=== PATIENT | female | born 1965 | race African-American/Black ===

== ENCOUNTER 2016-03-22 17:25 | Emergency (ER) | payer OTHER, MEDICARE ==
[~2016-03-22] VITALS: Ht 160 cm; Wt 117.9 kg
[~2016-03-22 17:25] MED LIST: ACET1TAB37 PO; AMIT25TA PO; AMLO10TA4 PO; ASPI-482 PO; ASPI81TA2 PO; ATEN100T PO; BENZ100C2 PO; CALC0.25 PO; CARV12.52 PO; CARV3.122 PO; CARV6.252 PO; CLON0.1T PO; CLON0.1T12 PO; DOCU-27 PO; DOCU100C5 PO; DOXY100C2 PO; HYDR-2868 PO; HYDR-2869 PO; HYDR12.58 PO; HYDR25TA9 PO; ISOS60TA2 PO; LEVO150T PO; LEVO150T5 PO; LEVO200T5 PO; LISI40TA PO; OMEP40CA5 PO; PRAV40TA2 PO; PRAV80TA2 PO; PROVENTIL HFA6.7 GM IH; SPIR1TAB3 PO; TOPI50TA4 PO; TRAM100T PO
[2016-03-22 18:15] VITALS: BP 155/83
[2016-03-22] MEDS ORDERED: ALLO300T PO (19:14)
[2016-03-22] MEDS ORDERED: HYDR-971 PO (19:14)
--- NOTE | 2016-03-22 19:14 | PHYS DOC ---
Past Medical History Past Medical History: Asthma, CHF, High Cholesterol, Hypertension, Hyperthyroid , Kidney Infection, Renal Disease Additional Past Medical Histor: CHRONIC KIDNEY DISEASE, Gout Past Surgical History: Cholecystectomy, Hysterectomy, Tubal ligation Additional Past Surgical Histo: PERICARDIAL Window Alcohol Use: None Drug Use: None Adult General Chief Complaint Chief Complaint: FOOT INJURY PAIN [facility] HPI Patient is a 50 year old female presents the emergency department with complaint of atraumatic left great toe pain and swelling that began approximately 2 weeks ago. Patient does have a history of gout. Patient had been taken IUP or not daily. She's been out of Alupent off approximately 2 months patient patient states that she has a follow-up appointment with her primary care doctor next week. Review of Systems Review of Systems Constitutional: Denies fever or chills [] Eyes: Denies change in visual acuity, redness, or eye pain [] HENT: Denies nasal congestion or sore throat [] Respiratory: Denies cough or shortness of breath [] Cardiovascular: No additional information not addressed in HPI [] GI: Denies abdominal pain, nausea, vomiting, bloody stools or diarrhea [] : Denies dysuria or hematuria [] Musculoskeletal: Denies back pain or joint pain [] Integument: Denies rash or skin lesions [] Neurologic: Denies headache, focal weakness or sensory changes [] Endocrine: Denies polyuria or polydipsia [] Allergies Allergies Allergies Coded Allergies Type Severity Reaction Last Updated Verified Penicillins Allergy Intermediate 11/29/15 Yes Physical Exam Physical Exam Constitutional: Well developed, well nourished, no acute distress, non-toxic appearance. [] HENT: Normocephalic, atraumatic, bilateral external ears normal, oropharynx moist, no oral exudates, nose normal. [] Eyes: PERRLA, EOMI, conjunctiva normal, no discharge. [] Neck: Normal range of motion, no tenderness, supple, no stridor. [] Cardiovascular:Heart rate regular rhythm, no murmur [] Lungs & Thorax: Bilateral breath sounds clear to auscultation [] Abdomen: Bowel sounds normal, soft, no tenderness, no masses, no pulsatile masses. [] Skin: Significant amount of hypertrophic nail overgrowth secondary to fungal infection. This affects all toenails. Back: No tenderness, no CVA tenderness. [] Extremities: Left first MTPJ with mild swelling and a mild amount of erythema. There is no fluctuance. There is no ascending lymphangitis. There is no pain with passive flexion. Neurologic: Alert and oriented X 3, normal motor function, normal sensory function, no focal deficits noted. [] Psychologic: Affect normal, judgement normal, mood normal. [] Current Patient Data Vital Signs Vital Signs Date Time Temp Pulse Resp B/P Pulse Ox O2 Delivery O2 Flow Rate FiO2 03/22/16 18:15 98.1 80 16 97 Room Air 98.1 EKG EKG [] Radiology/Procedures Radiology/Procedures [] Course & Med Decision Making Course & Med Decision Making Pertinent Labs and Imaging studies reviewed. (See chart for details) [] Dragon Disclaimer Dragon Disclaimer This electronic medical record was generated, in whole or in part, using a voice recognition dictation system. Departure Departure Impression: Primary Impression: Gout Disposition: HOME, SELF-CARE Condition: GOOD Referrals: JUSTINO CARPIO (PCP) Patient Instructions: Gout, [id number] Additional Instructions: 1. Take the medication as prescribed. 2. Review the discharge instructions for self-care and reasons to return the emergency department. 3. Follow-up with your primary care doctor as planned for next week. Scripts Hydrocodone/Apap 5-325 (Walton 5-325 Tablet)1 Each Tablet1 Tab PO PRN Q6HRS PRN PAIN #15 TAB Ref 0 Prov:NAYA GARCIA 03/22/16 Allopurinol 300 Mg Tablet1 Tab PO DAILY #14 TAB Ref 0 Prov:NAYA GARCIA 03/22/16 NAYA GARCIA Mar 22, 2016 19:14
== END 2016-03-22 19:20 | disposition home or self-care (01) ==
LOC: ER 17:25
DX: M10.9 Gout, unspecified (principal); E78.00 Pure hypercholesterolemia, unspecified; I13.0 Hypertensive heart and chronic kidney disease with heart failure and stage 1 through stage 4 chronic kidney disease, or unspecified chronic kidney disease; I50.9 Heart failure, unspecified; N18.9 Chronic kidney disease, unspecified; J45.909 Unspecified asthma, uncomplicated; E05.90 Thyrotoxicosis, unspecified without thyrotoxic crisis or storm; Z88.0 Allergy status to penicillin
CPT/HCPCS: 99283

== ENCOUNTER → 2016-06-03 | Outpatient (CLI) | payer MEDICARE, OTHER ==
[~2016-06-03] MED LIST changes: +ALLO300T PO; +HYDR-971 PO
[2016-06-03 13:28] LABS: HEMATOCRIT 37.8 % (36.0-47.0); HEMOGLOBIN 12.1 g/dL (12.0-15.5)
[2016-06-03 13:51] LABS: ALBUMIN 3.2 g/dL (3.4-5.0); CALCIUM 9.8 mg/dL (8.5-10.1); CREATININE 3.1 mg/dL (0.6-1.0); GFR 19.4; MAGNESIUM 1.8 mg/dL (1.8-2.4); PHOSPHORUS 3.7 mg/dL (2.6-4.7)
[2016-06-03 21:27] LABS: UR PROTEIN RD 22.3 mg/dL (Not Estab.)
[2016-06-03 22:09] LABS: PTH INTACT 212 pg/mL (15-65)
== END | disposition home or self-care (01) ==
LOC: LAB 12:58 → EDBD 12:58
PROVIDERS: ATTEND Nurse Practitioner Family
DX: I12.9 Hypertensive chronic kidney disease with stage 1 through stage 4 chronic kidney disease, or unspecified chronic kidney disease (principal); N18.3 Chronic kidney disease, stage 3 (moderate); Z68.42 Body mass index [BMI] 45.0-49.9, adult; E21.3 Hyperparathyroidism, unspecified; E87.6 Hypokalemia; R60.0 Localized edema; R80.9 Proteinuria, unspecified; N27.0 Small kidney, unilateral
CPT/HCPCS: 36415; 80069; 82043; 82570; 83735; 83970; 84156; 85014; 85018

== ENCOUNTER → 2016-10-27 | Outpatient (CLI) | payer MEDICARE, OTHER ==
[~2016-10-27] MED LIST changes: +ASPI-630 PO; -ASPI81TA2 PO; +BENZ100C15 PO; -BENZ100C2 PO; +DOCU-109 PO; -DOCU-27 PO; +DOCU100C28 PO; -DOCU100C5 PO; -TOPI50TA4 PO; +TOPI50TA8 PO
[2016-10-27 11:45] LABS: HEMATOCRIT 36.5 % (36.0-47.0); HEMOGLOBIN 11.9 g/dL (12.0-15.5)
[2016-10-27 11:55] LABS: % SAT IRON 21 % (15-34); IRON,SERUM 61 ug/dL (50-170)
[2016-10-27 12:08] LABS: ALBUMIN 3.2 g/dL (3.4-5.0); CALCIUM 9.9 mg/dL (8.5-10.1); CREATININE 3.1 mg/dL (0.6-1.0); GFR 19.3; PHOSPHORUS 3.6 mg/dL (2.6-4.7); POTASSIUM 3.5 mmol/L (3.5-5.1)
[2016-10-28 00:09] LABS: TOTAL SERUM CREATININE 2.83 mg/dL (0.57-1.00); TOTAL URINE CREATININE 85.8 mg/dL (Not Estab.)
[2016-10-29 07:19] LABS: UR PROTEIN RD 24.5 mg/dL (Not Estab.)
== END | disposition home or self-care (01) ==
LOC: EDBD 11:04 → LAB 11:04
PROVIDERS: ATTEND Internal Medicine Nephrology
DX: I12.9 Hypertensive chronic kidney disease with stage 1 through stage 4 chronic kidney disease, or unspecified chronic kidney disease (principal); N18.4 Chronic kidney disease, stage 4 (severe); E21.3 Hyperparathyroidism, unspecified; D47.2 Monoclonal gammopathy; N27.0 Small kidney, unilateral; D64.9 Anemia, unspecified; R80.1 Persistent proteinuria, unspecified; Z68.41 Body mass index [BMI] 40.0-44.9, adult
CPT/HCPCS: 36415; 80069; 82043; 82306; 82570; 82575; 82607; 82728; 83540; 83550; 84156; 85014; 85018

== ENCOUNTER → 2017-06-05 | Outpatient (CLI) | payer OTHER, MEDICARE ==
[2017-06-05 10:04] LABS: ADD MAN DIFF? NO
[2017-06-05 10:23] LABS: BASO % 0 % (0-3); EOS # 0.5 x10^3/uL (0.0-0.7); EOS % 4 % (0-3); HEMATOCRIT 36.6 % (36.0-47.0); HEMOGLOBIN 12.2 g/dL (12.0-15.5); LYMPH # 2.9 x10^3/uL (1.0-4.8); LYMPH % 21 % (24-48); MEAN CORPUSCULAR HEMOGLOBIN 27 pg (25-35); MEAN CORPUSCULAR HGB CONC 33 g/dL (31-37); MEAN CORPUSCULAR VOLUME 81 fL (79-100); MONO # 1.2 x10^3/uL (0.0-1.1); MONO % 8 % (0-9); NEUT # 9.5 x10^3uL (1.8-7.7); NEUT % 67 % (31-73); PLATELET COUNT 194 x10^3/uL (140-400); RED BLOOD COUNT 4.51 x10^6/uL (3.50-5.40); RED CELL DISTRIBUTION WIDTH 18.2 % (11.5-14.5); WHITE BLOOD COUNT 14.1 x10^3/uL (4.0-11.0)
[2017-06-05 10:38] LABS: ANION GAP 7 (6-14); BLOOD UREA NITROGEN 39 mg/dL (7-20); CARBON DIOXIDE 27 mmol/L (21-32); CHLORIDE 105 mmol/L (98-107); CREATININE 2.5 mg/dL (0.6-1.0); GFR 24.8; GLUCOSE 103 mg/dL (70-99); MAGNESIUM 2.1 mg/dL (1.8-2.4); PHOSPHORUS 3.2 mg/dL (2.6-4.7); POTASSIUM 3.5 mmol/L (3.5-5.1); SODIUM 139 mmol/L (136-145)
[2017-06-05 18:13] LABS: CALCIUM PTH 10.2 mg/dL (8.7-10.2); CREATININE PTH 2.29 mg/dL (0.57-1.00); PHOSPHORUS PTH 2.9 mg/dL (2.5-4.5); PTH INTACT 176 pg/mL (15-65); eGFR AFRICAN-AMER 28 (>59); eGFR NON AFRICAN-AMER 24 (>59)
[2017-06-05 19:17] LABS: TOTAL PROTEIN CREATININE RATIO 945 mg/g creat (0-200); UR CREATININE RD 143.1 mg/dL (Not Estab.); UR PROTEIN RD 135.2 mg/dL (Not Estab.)
[2017-06-08 16:16] LABS: CREAT RD UR 142.4 mg/dL (Not Estab.); MICRO CREAT RATIO 695.9 mg/g creat (0.0-30.0); MICROALB RD UR 990.9 ug/mL (Not Estab.)
== END | disposition home or self-care (01) ==
LOC: LAB 09:25
DX: I13.0 Hypertensive heart and chronic kidney disease with heart failure and stage 1 through stage 4 chronic kidney disease, or unspecified chronic kidney disease (principal); I50.9 Heart failure, unspecified; N18.4 Chronic kidney disease, stage 4 (severe); D47.2 Monoclonal gammopathy; E55.9 Vitamin D deficiency, unspecified; N27.0 Small kidney, unilateral; D64.9 Anemia, unspecified; R80.1 Persistent proteinuria, unspecified; Z68.42 Body mass index [BMI] 45.0-49.9, adult
CPT/HCPCS: 36415; 80069; 82043; 82306; 82570; 83735; 83970; 84156; 85025

== ENCOUNTER → 2017-08-17 | Outpatient (CLI) | payer OTHER ==
[2017-08-17 14:04] LABS: ADD MAN DIFF? NO
[2017-08-17 14:27] LABS: BASO % 0 % (0-3); EOS # 0.4 x10^3/uL (0.0-0.7); EOS % 4 % (0-3); HEMATOCRIT 40.8 % (36.0-47.0); HEMOGLOBIN 13.4 g/dL (12.0-15.5); LYMPH # 2.8 x10^3/uL (1.0-4.8); LYMPH % 23 % (24-48); MEAN CORPUSCULAR HEMOGLOBIN 28 pg (25-35); MEAN CORPUSCULAR HGB CONC 33 g/dL (31-37); MEAN CORPUSCULAR VOLUME 84 fL (79-100); MONO # 1.1 x10^3/uL (0.0-1.1); MONO % 9 % (0-9); NEUT # 7.9 x10^3uL (1.8-7.7); NEUT % 65 % (31-73); PLATELET COUNT 228 x10^3/uL (140-400); RED BLOOD COUNT 4.86 x10^6/uL (3.50-5.40); RED CELL DISTRIBUTION WIDTH 17.7 % (11.5-14.5); WHITE BLOOD COUNT 12.2 x10^3/uL (4.0-11.0)
[2017-08-17 14:38] LABS: ALBUMIN 3.4 g/dL (3.4-5.0); ANION GAP 5 (6-14); BLOOD UREA NITROGEN 21 mg/dL (7-20); CALCIUM 9.7 mg/dL (8.5-10.1); CARBON DIOXIDE 31 mmol/L (21-32); CHLORIDE 102 mmol/L (98-107); CREATININE 2.4 mg/dL (0.6-1.0); GLUCOSE 108 mg/dL (70-99); MAGNESIUM 1.8 mg/dL (1.8-2.4); PHOSPHORUS 2.6 mg/dL (2.6-4.7); POTASSIUM 3.2 mmol/L (3.5-5.1); SODIUM 138 mmol/L (136-145)
[2017-08-17 21:12] LABS: CREAT RD UR 117.6 mg/dL (Not Estab.); MICRO CREAT RATIO 3217.2 mg/g creat (0.0-30.0); MICROALB RD UR 3783.4 ug/mL (Not Estab.); TOTAL PROTEIN CREATININE RATIO 4975 mg/g creat (0-200); UR CREATININE RD 117.9 mg/dL (Not Estab.); UR PROTEIN RD 586.6 mg/dL (Not Estab.)
[2017-08-18 09:19] LABS: CALCIUM PTH 10.6 mg/dL (8.7-10.2); CREATININE PTH 2.18 mg/dL (0.57-1.00); PHOSPHORUS PTH 2.7 mg/dL (2.5-4.5); PTH INTACT 358 pg/mL (15-65); eGFR AFRICAN-AMER 30 (>59); eGFR NON AFRICAN-AMER 26 (>59)
== END | disposition home or self-care (01) ==
LOC: LAB 13:48
DX: I12.9 Hypertensive chronic kidney disease with stage 1 through stage 4 chronic kidney disease, or unspecified chronic kidney disease (principal); N18.4 Chronic kidney disease, stage 4 (severe); E55.9 Vitamin D deficiency, unspecified; D47.2 Monoclonal gammopathy; N27.0 Small kidney, unilateral; D64.9 Anemia, unspecified; R80.1 Persistent proteinuria, unspecified; Z68.42 Body mass index [BMI] 45.0-49.9, adult
CPT/HCPCS: 36415; 80069; 82043; 82306; 82570; 83735; 83970; 84156; 85025

== ENCOUNTER → 2018-04-26 | Outpatient (CLI) | payer OTHER ==
[~2018-04-26] MED LIST changes: +ALBU2.5V8 IH; +BENZ-8 PO; -BENZ100C15 PO; +CARV12.511 PO; -CARV12.52 PO; +CARV3.1210 PO; -CARV3.122 PO; +CARV6.2511 PO; -CARV6.252 PO; +HYDR-2145 PO; +HYDR-3164 PO; -HYDR-971 PO; -HYDR25TA9 PO; +LISI-130 PO; -LISI40TA PO; -PROVENTIL HFA6.7 GM IH; -TRAM100T PO; +TRAM100T30 PO
--- NOTE | 2018-04-26 10:08 | RAD ---
DATE: 04/26/2018 EXAM: MAMMO HANK SCREENING BILATERAL HISTORY: Baseline. COMPARISON: None This study was interpreted with the benefit of Computerized Aided Detection (CAD). FINDINGS: Breast Density: SCATTERED The breast parenchyma shows scattered fibroglandular densities. Breast parenchyma level B. The skin and nipples are within normal limits. No suspicious calcifications, spiculated masses or areas of architectural distortion. IMPRESSION: No mammographic evidence of malignancy. BI-RADS CATEGORY: 2 BENIGN FINDING(S) RECOMMENDED FOLLOW-UP: 12M 12 MONTH FOLLOW-UP PQRS compliance statement: Patient information was entered into a reminder system with a target due date for the next mammogram. Mammography is a sensitive method for finding small breast cancers, but it does not detect them all and is not a substitute for careful clinical examination. A negative mammogram does not negate a clinically suspicious finding and should not result in delay in biopsying a clinically suspicious abnormality. "Our facility is accredited by the [employer] Mammography Program."
== END | disposition home or self-care (01) ==
LOC: MAMMO 08:48
PROVIDERS: ATTEND Internal Medicine
DX: Z12.31 Encounter for screening mammogram for malignant neoplasm of breast (principal)
CPT/HCPCS: 77063; 77067

== ENCOUNTER 2018-09-16 10:03 | Emergency (ER) | payer OTHER ==
[~2018-09-16] VITALS: Ht 157.5 cm; Wt 117.9 kg
--- NOTE | 2018-09-16 10:21 | PHYS DOC ---
Past Medical History Past Medical History: Asthma, CHF, High Cholesterol, Hypertension, Hypert hyroid, Kidney Infection, Renal Disease Additional Past Medical Histor: CHRONIC KIDNEY DISEASE, Gout Past Surgical History: Cholecystectomy, Hysterectomy, Tubal ligation Additional Past Surgical Histo: PERICARDIAL Window Alcohol Use: None Drug Use: None Adult General Chief Complaint Chief Complaint: DIALYSIS PROBLEM HPI HPI Patient is a 52 year old female with a history of CHF, depression, end-stage kidney disease-has not yet started dialysis who presents to the ED today complaining of soreness around the fistula site that was placed 6 weeks ago. Patient states the soreness began a couple days ago. Denies any injury. Denies any fever. Review of Systems Review of Systems Constitutional: Denies fever or chills [] Eyes: Denies change in visual acuity, redness, or eye pain [] HENT: Denies nasal congestion or sore throat [] Respiratory: Denies cough or shortness of breath [] Cardiovascular: No additional information not addressed in HPI [] GI: Denies abdominal pain, nausea, vomiting, bloody stools or diarrhea [] : Denies dysuria or hematuria [] Musculoskeletal: Denies back pain or joint pain [] Integument: Reports soreness around the fistula site Neurologic: Denies headache, focal weakness or sensory changes [] All other systems were reviewed and found to be within normal limits, except as documented in this note. Allergies Allergies Allergies Coded Allergies Type Severity Reaction Last Updated Verified Penicillins Allergy Intermediate 11/29/15 Yes Physical Exam Physical Exam Constitutional: Well developed, well nourished, no acute distress, non-toxic appearance. [] HENT: Normocephalic, atraumatic, bilateral external ears normal, oropharynx moist, no oral exudates, nose normal. [] Eyes: PERRLA, EOMI, conjunctiva normal, no discharge. [] Neck: Normal range of motion, no tenderness, supple, no stridor. [] Cardiovascular:Heart rate regular rhythm, no murmur [] Lungs & Thorax: Bilateral breath sounds clear to auscultation [] Abdomen: Bowel sounds normal, soft, no tenderness, no masses, no pulsatile masses. [] Skin: Obese patient. Left biceps and proximal forearm fistular sites with well scabbed over laceration sites with no drainage, no redness, no warmth, hematoma noted on the right proximal forearm with tenderness to the region, no signs of infection to the area. Full ROM to the left FA. +2 left radial pulse. Cap refill <2 seconds to the left FA. Adequate radial, medial and ulnar sensation to the left FA. Back: No tenderness, no CVA tenderness. [] Extremities: No tenderness, no cyanosis, no clubbing, ROM intact, no edema. [] Neurologic: Alert and oriented X 3, normal motor function, normal sensory function, no focal deficits noted. [] Psychologic: Affect normal, judgement normal, mood normal. [] Current Patient Data Vital Signs Vital Signs Date Time Temp Pulse Resp B/P (MAP) Pulse Ox O2 Delivery O2 Flow Rate FiO2 09/16/18 11:14 78 195/90 (125) 98 Room Air 09/16/18 10:18 97.7 18 97.7 EKG EKG [] Radiology/Procedures Radiology/Procedures []PROCEDURE: VENOUS UPPER EXTREMITY LEFT VENOUS UPPER EXTREMITY LEFT History: Pain around new dialysis fistula. Comparison: None. Procedure: Color flow Doppler, Doppler spectral analysis, and 2D images are obtained with and without compression in the jugular vein, subclavian vein, axillary vein, brachial vein, radial vein, ulnar vein, and basilic and cephalic veins. Findings: There is normal color flow, augmentation, and compressibility of all visualized vein segments. No evidence of deep venous thrombus is present. Large complex fluid collection within the medial forearm measures 4.8 x 5.0 x 4.5 cm. The reported fistula is not identified at this time. IMPRESSION: 1. No evidence of left upper extremity deep venous thrombosis. 2. Large left medial forearm complex fluid collection, may represent hematoma. 3. Left upper extremity fistula not identified, may relate to recent placement. Recommend clinical evaluation. Electronically signed by: Darren Saleem DO (09/16/2018 11:19 AM) [facility] DICTATED and SIGNED BY: DARREN SALEEM DO DATE: 09/16/18 1119 Course & Med Decision Making Course & Med Decision Making Pertinent Labs and Imaging studies reviewed. (See chart for details) This is a 52-year-old female patient who presents to the ED today with tenderness of the new dialysis fistula site on the left forearm. Dialysis fistula was placed 6 weeks ago. No signs of infection to the area. Venous doppler of the LUE- No evidence of left upper extremity deep venous thrombosis. Large left medial forearm complex fluid collection, may represent hematoma. Left upper extremity fistula not identified, may relate to recent placement. Patient's fistula site has no signs of infection. She I hematoma mentioned above. Recommended she ice and elevate the affected extremity. She has an appointment with her vascular surgeon on Thursday next week encouraged. Provided return precautions and discharged in stable condition. Dragon Disclaimer Dragon Disclaimer This electronic medical record was generated, in whole or in part, using a voice recognition dictation system. Departure Departure Impression: Primary Impression: Hematoma of arm Disposition: HOME, SELF-CARE Condition: STABLE Referrals: SHENG CUMMINGS MD (PCP) Follow-up with your surgeon on Thursday next week Patient Instructions: Hematoma, [id number] Additional Instructions: You were evaluated in the emergency room and noted to have a hematoma on the left upper extremity. Try to ice and elevate the affected area. Please follow-up with her vascular surgeon at [facility] on Thursday next week. Come back to the ED at any point symptoms worsen Problem Qualifiers Primary Impression: Hematoma of arm Encounter type: initial encounter Laterality: left Qualified Codes: S40.022A - Contusion of left upper arm, initial encounter DASH CHENEY [employer] Sep 16, 2018 10:21
[2018-09-16 11:14] VITALS: BP 195/90
--- NOTE | 2018-09-16 11:21 | RAD ---
VENOUS UPPER EXTREMITY LEFT History: Pain around new dialysis fistula. Comparison: None. Procedure: Color flow Doppler, Doppler spectral analysis, and 2D images are obtained with and without compression in the jugular vein, subclavian vein, axillary vein, brachial vein, radial vein, ulnar vein, and basilic and cephalic veins. Findings: There is normal color flow, augmentation, and compressibility of all visualized vein segments. No evidence of deep venous thrombus is present. Large complex fluid collection within the medial forearm measures 4.8 x 5.0 x 4.5 cm. The reported fistula is not identified at this time. IMPRESSION: 1. No evidence of left upper extremity deep venous thrombosis. 2. Large left medial forearm complex fluid collection, may represent hematoma. 3. Left upper extremity fistula not identified, may relate to recent placement. Recommend clinical evaluation. Electronically signed by: Diony Kessler DO (09/16/2018 11:19 AM) [facility]
== END 2018-09-16 11:57 | disposition home or self-care (01) ==
LOC: ER 10:03
DX: S40.022A Contusion of left upper arm, initial encounter (principal); J45.909 Unspecified asthma, uncomplicated; I13.2 Hypertensive heart and chronic kidney disease with heart failure and with stage 5 chronic kidney disease, or end stage renal disease; N18.6 End stage renal disease; I50.9 Heart failure, unspecified; Z99.2 Dependence on renal dialysis; Z88.0 Allergy status to penicillin; X58.XXXA Exposure to other specified factors, initial encounter; Y93.89 Activity, other specified; Y92.89 Other specified places as the place of occurrence of the external cause; Y99.8 Other external cause status
CPT/HCPCS: 93971; 99284

== ENCOUNTER 2019-03-07 19:08 | Inpatient (IN) | payer OTHER, MEDICAID ==
[~2019-03-07] VITALS: Ht 160 cm; Wt 140.7 kg
[~2019-03-07 19:08] MED LIST changes: -ALBU2.5V8 IH; +OMEP40CA45 PO; -OMEP40CA5 PO; +PROVENTIL HFA6.7 GM IH
[2019-03-07] MEDS ORDERED: methylPREDNISolone SOD SUCC PF 125 MG/2 ML VIAL. IV ONE (21:00)
[2019-03-07] MEDS ORDERED: ALBUTEROL SULFATE 2.5 MG/3 ML NEBU. NEB ONE (21:00)
--- NOTE | 2019-03-07 21:02 | PHYS DOC ---
Past Medical History Past Medical History: Asthma, CHF, High Cholesterol, Hypertension, Hyperthyroid, Kidney Infection, Renal Disease Additional Past Medical Histor: CHRONIC KIDNEY DISEASE, Gout Past Surgical History: Cholecystectomy, Hysterectomy, Tubal ligation Additional Past Surgical Histo: PERICARDIAL Window Alcohol Use: None Drug Use: None Adult General Chief Complaint Chief Complaint: RIB PAIN HPI HPI Patient is a 53 year old female who presents with mid chest pain with cough and just sitting, fever, headache 3 weeks. Patient is short of air with exertion. She states she is not have breathing treatments at home but has been using her inhaler more often. She states her inhaler helps her slightly. States she is only been taking Tylenol occasionally for headache. She is last 4 days she's been having diarrhea off and on but there is no blood. Patient sees a c ardiologist and a kidney doctor at . Patient is to start dialysis due to her stage V kidney disease. She had a fistula placed in November but has yet to start the dialysis. She has a history also of asthma, hypertension, chronic pain, CHF, hypothyroidism, pericardial window, hysterectomy. Currently rating her pain a 5 out of 10. Review of Systems Review of Systems Constitutional: fever or chills [] Respiratory: cough or shortness of breath [] Cardiovascular: Mid chest pain GI: Denies abdominal pain, nausea, vomiting, bloody stools. + diarrhea [] [] All other systems were reviewed and found to be within normal limits, except as documented in this note. Current Medications Current Medications Current Medications Medications (Trade) Dose Ordered Sig/Kat Start Time Stop Time Status Last Admin Dose Admin Albuterol Sulfate (Ventolin Neb Soln) 2.5 mg 1X ONCE 03/07/19 21:00 03/07/19 21:02 DC 03/07/19 21:05 2.5 MG Aspirin (Merrill Aspirin) 325 mg STK-MED ONCE 03/07/19 21:47 03/07/19 21:47 DC Methylprednisolone Sodium Succinate (SOLU-Medrol 125MG VIAL) 125 mg 1X ONCE 03/07/19 21:00 03/07/19 21:02 DC 03/07/19 21:49 125 MG Allergies Allergies Allergies Coded Allergies Type Severity Reaction Last Updated Verified Penicillins Allergy Intermediate 11/29/15 Yes Physical Exam Physical Exam Constitutional: Well developed, well nourished, no acute distress, non-toxic appearance. [] HENT: Normocephalic, atraumatic, bilateral external ears normal, oropharynx moist, no oral exudates, nose normal. [] Eyes: PERRLA, EOMI, conjunctiva normal, no discharge. [] Neck: Normal range of motion, no tenderness, supple, no stridor. [] Cardiovascular:Heart rate regular rhythm, no murmur [] Lungs & Thorax: Bilateral breath sounds diminished to auscultation [] Abdomen: Bowel sounds normal, soft, no tenderness, no masses, no pulsatile masses. [] Skin: Warm, dry, no erythema, no rash. [] Back: No tenderness, no CVA tenderness. [] Extremities: No tenderness, no cyanosis, no clubbing, ROM intact, 3+ bilateral lower edema. [] Neurologic: Alert and oriented X 3, normal motor function, normal sensory function, no focal deficits noted. [] Psychologic: Affect normal, judgement normal, mood normal. [] Current Patient Data Vital Signs Vital Signs Date Time Temp Pulse Resp B/P (MAP) Pulse Ox O2 Delivery O2 Flow Rate FiO2 03/07/19 21:07 96 Room Air 03/07/19 20:43 97.9 79 16 168/91 (116) 97.9 Lab Values Laboratory Tests Test 03/07/19 21:11 03/07/19 21:12 White Blood Count 11.9 x10^3/uL (4.0-11.0) H Red Blood Count 4.64 x10^6/uL (3.50-5.40) Hemoglobin 12.0 g/dL (12.0-15.5) Hematocrit 37.4 % (36.0-47.0) Mean Corpuscular Volume 81 fL (79-100) Mean Corpuscular Hemoglobin 26 pg (25-35) Mean Corpuscular Hemoglobin Concent 32 g/dL (31-37) Red Cell Distribution Width 15.6 % (11.5-14.5) H Platelet Count 218 x10^3/uL (140-400) Neutrophils (%) (Auto) 68 % (31-73) Lymphocytes (%) (Auto) 19 % (24-48) L Monocytes (%) (Auto) 9 % (0-9) Eosinophils (%) (Auto) 3 % (0-3) Basophils (%) (Auto) 1 % (0-3) Neutrophils # (Auto) 8.1 x10^3/uL (1.8-7.7) H Lymphocytes # (Auto) 2.3 x10^3/uL (1.0-4.8) Monocytes # (Auto) 1.0 x10^3/uL (0.0-1.1) Eosinophils # (Auto) 0.4 x10^3/uL (0.0-0.7) Basophils # (Auto) 0.1 x10^3/uL (0.0-0.2) Prothrombin Time 11.7 SEC (11.7-14.0) Prothrombin Time INR 0.9 (0.8-1.1) Sodium Level 141 mmol/L (136-145) Potassium Level 4.5 mmol/L (3.5-5.1) Chloride Level 106 mmol/L (98-107) Carbon Dioxide Level 23 mmol/L (21-32) Anion Gap 12 (6-14) Blood Urea Nitrogen 63 mg/dL (7-20) H Creatinine 6.3 mg/dL (0.6-1.0) H Estimated GFR (Cockcroft-Gault) 8.5 BUN/Creatinine Ratio 10 (6-20) Glucose Level 124 mg/dL (70-99) H Calcium Level 9.8 mg/dL (8.5-10.1) Total Bilirubin 0.2 mg/dL (0.2-1.0) Aspartate Amino Transferase (AST) 21 U/L (15-37) Alanine Aminotransferase (ALT) 16 U/L (14-59) Alkaline Phosphatase 90 U/L (46-116) Troponin I Quantitative 0.622 ng/mL (0.000-0.055) [id number]-Type Natriuretic Peptide 4193 pg/mL (0-124) H Total Protein 7.3 g/dL (6.4-8.2) Albumin 3.1 g/dL (3.4-5.0) L Albumin/Globulin Ratio 0.7 (1.0-1.7) L Urine Color Yellow Urine Clarity Clear Urine pH 5.5 Urine Specific [place] 1.015 Urine Protein >=300 mg/dL (NEG-TRACE) Urine Glucose (UA) Negative mg/dL (NEG) Urine Ketones (Stick) Negative mg/dL (NEG) Urine Blood Negative (NEG) Urine Nitrite Negative (NEG) Urine Bilirubin Negative (NEG) Urine Urobilinogen Dipstick 0.2 mg/dL (0.2 mg/dL) Urine Leukocyte Esterase Trace (NEG) Urine RBC 0 /HPF (0-2) Urine WBC 5-10 /HPF (0-4) Urine Squamous Epithelial Cells Occ /LPF Urine Bacteria Few /HPF (0-FEW) Urine Opiates Screen Neg (NEG) Urine Methadone Screen Neg (NEG) Urine Barbiturates Neg (NEG) Urine Phencyclidine Screen Neg (NEG) Urine Amphetamine/Methamphetamine Neg (NEG) Urine Benzodiazepines Screen Neg (NEG) Urine Cocaine Screen Neg (NEG) Urine Cannabinoids Screen Neg (NEG) Urine Ethyl Alcohol Neg (NEG) Laboratory Tests 03/07/19 21:11 Laboratory Tests 03/07/19 21:11 EKG EKG Sinus Rhythm and no NSTEMI[] Interpretation Time: [address] Bean Radiology/Procedures Radiology/Procedures [] Impressions: [facility] [address] [place] [address] IMAGING REPORT Signed PATIENT: JUAN MANUEL NICHOLAS MACCOUNT: [id number] : 1965 LOCATION: ER AGE: 53 SEX: F EXAM STATUS: REG ER ORD. PHYSICIAN: ALLIE KING APRN REASON: cough, chest pain PROCEDURE: CHEST PA & LATERAL CHEST PA LATERAL History: Cough. Chest pain. Comparison: November 26, 2015 Findings: Cardiomegaly. No consolidation or pleural effusion. No pneumothorax. Impression: 1. Cardiomegaly. 2. Otherwise, negative chest. Electronically signed by: Diony Kessler DO (03/07/2019 10:01 PM) [facility] DICTATED and SIGNED BY: DIONY KESSLER DO DATE: 03/07/192200 Course & Med Decision Making Course & Med Decision Making Alert and oriented. Speaks in full clear sentences. Lungs are diminished throughout. Vital signs are within normal limits. Afebrile. Abdomen is soft and nontender. Skin pink warm and dry. Ambulatory with a steady gait. Patient has 3+ pedal edema bilaterally. Patient denies being on any kind of diuretic. Patient denies nausea, vomiting, abdominal pain, dizziness, headache, visual changes, numbness tingling, weakness. Troponin is elevated at 0.622. Normal Sinus and NSTEMI and read by Dr Bean. Dr Bean has compared the EKG with old EKG and there is no difference. hen looking back in the chart the patients Troponin is the same as it has been running. Patient is given a Aspirin. Spoken to Dr. Mcclendon and he states to call her admitting diagnoses ACS. He states she probably lives at 0.622 open due to her kidney disease. She'll be given a dose of Lovenox. Dr. Mcclendon stated to refer cardiology and that I did not need to call them at this time. Dragon Disclaimer Dragon Disclaimer This electronic medical record was generated, in whole or in part, using a voice recognition dictation system. The HEART Score for CP Pts HEART Score for Chest Pain: HEART Score for Chest Pain Response (Comments) Value History Moderately Suspicious 1 ECG Normal 0 Age >45 - < 65 1 Risk Factors >3 Risk Factors or Hx CAD 2 Troponin < Normal Limit 0 Total 4 Risk Factors: Risk Factors: DM, Current or recent (<one month) smoker, HTN, HLP, family history of CAD, obesity. Risk Scores: Score 0 - 3: 2.5% MACE over next 6 weeks - Discharge Home Score 4 - 6: 20.3% MACE over next 6 weeks - Admit for Clinical Observation Score 7 - 10: 72.7% MACE over next 6 weeks - Early Invasive Strategies Departure Departure Impression: Primary Impression: ACS (acute coronary syndrome) Disposition: ADMITTED INPATIENT Admitting Physician: GOGO Condition: STABLE Referrals: SHENG CUMMINGS MD (PCP) ALLIE KING APRN Mar 07, 2019 21:02
[2019-03-07 21:19] LABS: BASO # 0.1 x10^3/uL (0.0-0.2); BASO % 1 % (0-3); EOS # 0.4 x10^3/uL (0.0-0.7); EOS % 3 % (0-3); HEMATOCRIT 37.4 % (36.0-47.0); LYMPH # 2.3 x10^3/uL (1.0-4.8); LYMPH % 19 % (24-48); MEAN CORPUSCULAR HEMOGLOBIN 26 pg (25-35); MEAN CORPUSCULAR HGB CONC 32 g/dL (31-37); MEAN CORPUSCULAR VOLUME 81 fL (79-100); MONO % 9 % (0-9); NEUT # 8.1 x10^3/uL (1.8-7.7); NEUT % 68 % (31-73); PLATELET COUNT 218 x10^3/uL (140-400); RED BLOOD COUNT 4.64 x10^6/uL (3.50-5.40); RED CELL DISTRIBUTION WIDTH 15.6 % (11.5-14.5); WHITE BLOOD COUNT 11.9 x10^3/uL (4.0-11.0)
[2019-03-07 21:27] LABS: CALCIUM 9.8 mg/dL (8.5-10.1); CREATININE 6.3 mg/dL (0.6-1.0); GFR 8.5; POTASSIUM 4.5 mmol/L (3.5-5.1); PROTHROMBIN TIME PATIENT 11.7 SEC (11.7-14.0)
[2019-03-07 21:33] LABS: ALBUMIN 3.1 g/dL (3.4-5.0); ALBUMIN/GLOBULIN RATIO 0.7 (1.0-1.7); TOTAL BILIRUBIN 0.2 mg/dL (0.2-1.0); TOTAL PROTEIN 7.3 g/dL (6.4-8.2)
[2019-03-07 21:37] LABS: AMPHETAMINE/METHAMPHETAMINE NEG (NEG); BARBITURATES NEG (NEG); BENZODIAZEPINES NEG (NEG); CANNABINOIDS NEG (NEG); COCAINE NEG (NEG); METHADONE NEG (NEG); OPIATES NEG (NEG); PHENCYCLIDINE NEG (NEG)
[2019-03-07 21:44] LABS: BILIRUBIN,URINE NEGATIVE (NEG); CLARITY,URINE CLEAR; COLOR,URINE YELLOW; NITRITE,URINE NEGATIVE (NEG); PH,URINE 5.5; PROTEIN,URINE >=300 mg/dL (NEG-TRACE); UROBILINOGEN,URINE 0.2 mg/dL (0.2 mg/dL)
[2019-03-07] MEDS ORDERED: ASPIRIN 325 MG TABLET ONE (21:47)
[2019-03-07 21:51] LABS: RBC,URINE 0 /HPF (0-2)
[2019-03-07 21:52] LABS: BACTERIA,URINE FEW /HPF (0-FEW); SQUAMOUS EPITHELIAL CELL,UR OCC /LPF
[2019-03-07] MEDS ORDERED: ASPIRIN 325 MG TABLET PO ONE (22:00)
--- NOTE | 2019-03-07 22:04 | RAD ---
CHEST PA LATERAL History: Cough. Chest pain. Comparison: November 26, 2015 Findings: Cardiomegaly. No consolidation or pleural effusion. No pneumothorax. Impression: 1. Cardiomegaly. 2. Otherwise, negative chest. Electronically signed by: Diony Kessler DO (03/07/2019 10:01 PM) [facility]
[2019-03-07] MEDS ORDERED: fentaNYL PF VIAL 100 MCG/2 ML VIAL IV PRN (22:15)
[2019-03-07] MEDS ORDERED: ONDANSETRON PF 4 MG/2 ML VIAL. IV PRN (22:15)
[2019-03-08] MEDS ORDERED: ASPIRIN ENTERIC COATED 325 MG TABLET.DR. PO ONE (00:30)
[2019-03-08 01:17] VITALS: BP 199/87
[2019-03-08] MEDS ORDERED: PROM6.257 PO (01:49)
[2019-03-08] MEDS ORDERED: CLON0.3T PO (01:49)
[2019-03-08] MEDS ORDERED: CYCL10TA2 PO (01:49)
[2019-03-08] MEDS ORDERED: TIZA4TAB2 PO (01:49)
[2019-03-08] MEDS ORDERED: DOCU-109 PO (01:49)
[2019-03-08] MEDS ORDERED: BUDE10.2 IH (01:49)
[2019-03-08] MEDS ORDERED: CHOL200027 PO (01:49)
[2019-03-08] MEDS ORDERED: MONT10TA49 PO (01:49)
[2019-03-08] MEDS ORDERED: LOSA25TA12 PO (01:49)
--- NOTE | 2019-03-08 02:21 | NUR ---
Pt arrived to room 205 at approximately 0130. She is alert and oriented x4, 7-8/10 midsternal chest pain no radiation to a limb nor other pain. She ambulates with a steady gait and is a good historian, carries her home med list from [facility] with her and verbalized two edits; both of her diuretics have been stopped d/t kidney function. NPO status advised, pt v/u. Fentanyl given per MAR and asa 325 charted as not given d/t 325 asa given three hours prior in ER. Dr. Mcclendon paged for continuation of home meds including several bp meds she takes at night. Pt is hypertensive now, see vitals in chart. Heart monitor in place, will continue to monitor.
[2019-03-08] MEDS ORDERED: HYDROcodone/APAP 5/325MG 1 TAB TABLET PO PRN (02:30)
[2019-03-08] MEDS ORDERED: DOCUSATE SODIUM 100 MG CAPSULE. PO PRN (02:30)
[2019-03-08] MEDS ORDERED: CLON0.2T PO (02:32)
[2019-03-08 03:30] VITALS: BP 188/99
[2019-03-08] MEDS ORDERED: cloNIDine HCL 0.2 MG TABLET PO PRN (03:45)
--- NOTE | 2019-03-08 04:45 | NUR ---
Patient states she took Robitussin at home for a cold x3wks.
[2019-03-08] MEDS ORDERED: LOSARTAN POTASSIUM 25 MG TABLET. PO ONE (05:45)
[2019-03-08] MEDS ORDERED: amLODIPine BESYLATE 10 MG TABLET PO ONE (05:45)
[2019-03-08] MEDS ORDERED: ISOSORBIDE MONONITRATE ER 30 MG TAB.ER.24H PO ONE (05:45)
--- NOTE | 2019-03-08 05:56 | NUR ---
pt states she was unable to take any pm or hs home meds on 03/07 as she was in the [facility].
[2019-03-08 07:00] VITALS: BP 191/85
--- NOTE | 2019-03-08 07:05 | EKG ---
[facility] [address] [place] [address] Test Date: 2019-03-07 Test Time: 21:22:48 Pat Name: JUAN MANUEL HERRONJOCELYNIRON Department: Room: [facility] Gender: F Molded Parts Inspector: : 1965 Requested By: ALLIE KING Order Number: [id number] Reading MD: Measurements Intervals [place] Rate: P: VA: QRS: QRSD: T: QT: QTc: Interpretive Statements
[2019-03-08] MEDS: BUDESONIDE 0.5 MG/2 ML NEBU. NEB SCH ×2 (07:44→19:56)
[2019-03-08] MEDS: IPRATRPIUM/ALBUTEROL 0.5/2.5MG 3 ML NEBU. NEB SCH ×4 (07:44→16:50)
[2019-03-08] MEDS: ALBUTEROL SULFATE 2.5 MG/3 ML NEBU. NEB SCH ×3 (08:00→15:49)
[2019-03-08] MEDS: LEVOTHYROXINE 100 MCG TABLET PO SCH (08:14)
--- NOTE | 2019-03-08 08:31 | PDOC2 ---
MACK FERRIS GRADUATE ENGINEER 03/08/19 0831: CARDIAC CONSULT DATE OF CONSULT Date of Consult DATE: 03/08/19 TIME: 08:28 REASON FOR CONSULT Reason for Consult: ACS, elevated troponin REFERRING PHYSICIAN Referring Physician: John SOURCE Source: Chart review, Patient HISTORY OF PRESENT ILLNESS HISTORY OF PRESENT ILLNESS This is a pleasant 53 yo female admitted for complains of chest pain . Reports that she started having nasal congestion about 2 weeks ago. With that followed with nonproductive cough and some wheeze. She has been having intractable coughing spells and has been using her inhalers more than usual. Yesterday she started having some sharp chest tightness to her right chest mostly. No nausea but had some slight SOA. No palpitations. No orthopnea, and no significant leg swelling that is more than usual. No jaw or arm discomfort. Her chest pain is intermittent. She had coronary calcium CT scoring over almost 2 weeks ago. It came back ok as noted below. She is suppose to have stress test and echocardiogram at the end of the month. She sees [facility] cardiology. She is being worked up as a candidate for renal transplant and also bariatric treatment as well. She has CKD5 and has a maturing AV fistula to her LA and has not started on HD yet. No recent falls or any injury. PAST MEDICAL HISTORY Cardiovascular: AFIB (?), HTN, Hyperlipidemia, Other (severe LVH; pericardial window, pericarditis) Pulmonary: Asthma, Other (LENIN) GI: GERD (gastric erosions to 2019) Heme/Onc: Sickle cell trait Musculoskeletal: Osteoarthritis, Other (morbid obesity) Rheumatologic: Gout Renal/: Chronic renal insuff (CKD5) Endocrine: Hypothyroidism PAST SURGICAL HISTORY Past Surgical History: Hysterectomy, Other (thyroidectomy; LHC) SOCIAL HISTORY Smoke: Quit ALCOHOL: none Drugs: None Lives: with Family CURRENT MEDICATIONS CURRENT MEDICATIONS Current Medications Medications (Trade) Dose Ordered Sig/Kat Route PRN Reason Start Time Stop Time Status Last Admin Dose Admin Albuterol Sulfate (Ventolin Neb Soln) 2.5 mg 1X ONCE NEB 03/07/19 21:00 03/07/19 21:02 DC 03/07/19 21:05 Methylprednisolone Sodium Succinate (SOLU-Medrol 125MG VIAL) 125 mg 1X ONCE IV 03/07/19 21:00 03/07/19 21:02 DC 03/07/19 21:49 Aspirin (Merrill Aspirin) 325 mg 1X ONCE PO 03/07/19 22:00 03/07/19 22:01 DC 03/07/19 21:49 Enoxaparin Sodium (Lovenox 150mg Syringe) 135 mg 1X ONCE SQ 03/07/19 22:30 03/07/19 22:31 DC 03/07/19 23:19 Fentanyl Citrate (Fentanyl 2ml Vial) 50 mcg PRN Q1HR PRN IV PAIN 03/07/19 22:15 03/08/19 22:14 03/08/19 01:25 Albuterol/ Ipratropium (Duoneb) 3 ml RTQID NEB 03/08/19 08:00 03/09/19 07:59 03/08/19 07:44 Levothyroxine Sodium (Synthroid) 200 mcg DAILY06 PO 03/08/19 06:00 03/08/19 08:14 Budesonide (Pulmicort) 0.5 mg RTBID NEB 03/08/19 08:00 03/08/19 07:44 Clonidine HCl (Catapres) 0.2 mg PRN Q12HR PRN PO HYPERTENSION 03/08/19 03:45 03/08/19 03:48 Amlodipine Besylate (Norvasc) 10 mg 1X ONCE PO 03/08/19 05:45 03/08/19 05:46 DC 03/08/19 05:52 Hydralazine HCl (Apresoline) 100 mg 1X ONCE PO 03/08/19 05:45 03/08/19 05:46 DC 03/08/19 05:51 Losartan Potassium (Cozaar) 25 mg 1X ONCE PO 03/08/19 05:45 03/08/19 05:46 DC 03/08/19 05:51 Isosorbide Mononitrate (Imdur) 60 mg 1X ONCE PO 03/08/19 05:45 03/08/19 05:46 DC 03/08/19 05:52 ALLERGIES ALLERGIES: Coded Allergies: Penicillins (Verified Allergy, Intermediate, 11/29/15) shellfish derived (Verified Allergy, Unknown, 03/08/19) ROS Review of System 14 point ROS evaluated with pertinent positives noted per HPI PHYSICAL EXAM General: Alert, Oriented X3, Cooperative, No acute distress HEENT: Atraumatic, Mucous membr. moist/pink Lungs: Other (diminished) Heart: Regular rate (SR), Other (distant heart sounds due to body habitus) Abdomen: Soft, No tenderness, Other (obese) Extremities: No cyanosis, No edema, Other Skin: No breakdown, No significant lesion Neuro: Normal speech, Sensation intact Psych/Mental Status: Mental status NL, Mood NL MUSCULOSKELETAL: Osteoarthritic changes both hands VITALS/I&O VITALS/I&O: Vital Signs Date Time Temp Pulse Resp B/P (MAP) Pulse Ox O2 Delivery O2 Flow Rate FiO2 03/08/19 07:44 96 Room Air 03/08/19 07:00 97.9 86 18 191/85 (120) 97.9 I & O 03/07/19 03/07/19 03/08/19 15:00 23:00 07:00 Intake Total 120 ml Output Total 350 ml Balance -230 ml LABS Lab: Laboratory Tests Test 03/07/19 21:11 03/07/19 21:12 03/08/19 01:20 03/08/19 07:20 White Blood Count 11.9 x10^3/uL (4.0-11.0) H Red Blood Count 4.64 x10^6/uL (3.50-5.40) Hemoglobin 12.0 g/dL (12.0-15.5) Hematocrit 37.4 % (36.0-47.0) Mean Corpuscular Volume 81 fL (79-100) Mean Corpuscular Hemoglobin 26 pg (25-35) Mean Corpuscular Hemoglobin Concent 32 g/dL (31-37) Red Cell Distribution Width 15.6 % (11.5-14.5) H Platelet Count 218 x10^3/uL (140-400) Neutrophils (%) (Auto) 68 % (31-73) Lymphocytes (%) (Auto) 19 % (24-48) L Monocytes (%) (Auto) 9 % (0-9) Eosinophils (%) (Auto) 3 % (0-3) Basophils (%) (Auto) 1 % (0-3) Neutrophils # (Auto) 8.1 x10^3/uL (1.8-7.7) H Lymphocytes # (Auto) 2.3 x10^3/uL (1.0-4.8) Monocytes # (Auto) 1.0 x10^3/uL (0.0-1.1) Eosinophils # (Auto) 0.4 x10^3/uL (0.0-0.7) Basophils # (Auto) 0.1 x10^3/uL (0.0-0.2) Prothrombin Time 11.7 SEC (11.7-14.0) Prothrombin Time INR 0.9 (0.8-1.1) Sodium Level 141 mmol/L (136-145) Potassium Level 4.5 mmol/L (3.5-5.1) Chloride Level 106 mmol/L (98-107) Carbon Dioxide Level 23 mmol/L (21-32) Anion Gap 12 (6-14) Blood Urea Nitrogen 63 mg/dL (7-20) H Creatinine 6.3 mg/dL (0.6-1.0) H Estimated GFR (Cockcroft-Gault) 8.5 BUN/Creatinine Ratio 10 (6-20) Glucose Level 124 mg/dL (70-99) H Calcium Level 9.8 mg/dL (8.5-10.1) Total Bilirubin 0.2 mg/dL (0.2-1.0) Aspartate Amino Transferase (AST) 21 U/L (15-37) Alanine Aminotransferase (ALT) 16 U/L (14-59) Alkaline Phosphatase 90 U/L (46-116) Troponin I Quantitative 0.622 ng/mL (0.000-0.055) 0.550 ng/mL (0.000-0.055) 0.467 ng/mL (0.000-0.055) SM-Bvj-H-Type Natriuretic Peptide 4193 pg/mL (0-124) H Total Protein 7.3 g/dL (6.4-8.2) Albumin 3.1 g/dL (3.4-5.0) L Albumin/Globulin Ratio 0.7 (1.0-1.7) L Urine Color Yellow Urine Clarity Clear Urine pH 5.5 Urine Specific [place]cl[place] 1.015 Urine Protein >=300 mg/dL (NEG-TRACE) Urine Glucose (UA) Negative mg/dL (NEG) Urine Ketones (Stick) Negative mg/dL (NEG) Urine Blood Negative (NEG) Urine Nitrite Negative (NEG) Urine Bilirubin Negative (NEG) Urine Urobilinogen Dipstick 0.2 mg/dL (0.2 mg/dL) Urine Leukocyte Esterase Trace (NEG) Urine RBC 0 /HPF (0-2) Urine WBC 5-10 /HPF (0-4) Urine Squamous Epithelial Cells Occ /LPF Urine Bacteria Few /HPF (0-FEW) Urine Opiates Screen Neg (NEG) Urine Methadone Screen Neg (NEG) Urine Barbiturates Neg (NEG) Urine Phencyclidine Screen Neg (NEG) Urine Amphetamine/Methamphetamine Neg (NEG) Urine Benzodiazepines Screen Neg (NEG) Urine Cocaine Screen Neg (NEG) Urine Cannabinoids Screen Neg (NEG) Urine Ethyl Alcohol Neg (NEG) Laboratory Tests 03/07/19 21:11 Laboratory Tests 03/07/19 21:11 IMAGES IMAGES [facility] 02/18/2019 CT CARDIAC CALCIUM SCORE WO CONT, CT LMTD CHEST W CARDIAC IMPRESSION 1. There is no calcified coronary artery plaque identified. The total calcium score equals 0. 2. Mild cardiomegaly. 3. Enlarged main pulmonary artery, which may reflect pulmonary hypertension. Limited CT Chest: 1. Few small pulmonary nodules which are considered benign in the absence of known malignancy and require no further CT follow-up. 2. Geographic hepatic steatosis. ASSESSMENT/PLAN ASSESSMENT/PLAN 1. NSTEMI: suspect demand mediated type 2, with underlying severe LVH, renal insufficiency and HTN 2. Severe LVH 3. Accelerated HTN: hypertensive heart disease. labile 4. CKD5: per nephrology 5. Morbid obesity 6. Suspect chronic diastolic CHF: compensated 7. Asthma exacerbation: currently no wheeze. per PCP 8. HLP Recommendations 1. ECHO MPI today 2. She follows closely with [facility] neph[facility] and unclear as far as her first HD. W/U is ongoing for renal transplant consideration 3. Follow up with cardiology and consider amyloid workup and outpt LENIN workup. 4. Continue with home regimen, secondary prevention measures, optimize BB per BP trend. VONDA DOMINGUEZ MD 03/08/19 1805: CARDIAC CONSULT ASSESSMENT/PLAN ASSESSMENT/PLAN Patient seen and examined. Agree with SENIOR COMPLIANCE ANALYST's assessment and plan. NSTEMI probably demand ischemia 2D echo showed normal LVF Lexiscan MPI 2 day protocol ongoing We will titrate oral antihypertensives for better BP control Thank you for your consultation MACK FERRIS APRN Mar 08, 2019 08:31 VONDA DOMINGUEZ MD Mar 08, 2019 18:05
[2019-03-08] MEDS: CARVEDILOL 6.25 MG TABLET. PO SCH ×2 (08:52→17:35)
[2019-03-08] MEDS: ASPIRIN CHEWABLE 81 MG TABLET. PO SCH (08:53)
[2019-03-08] MEDS: CALCITRIOL 0.25 MCG CAPSULE. PO SCH (08:53)
[2019-03-08] MEDS: CYCLOBENZAPRINE 10 MG TABLET. PO SCH ×3 (08:53→21:37)
[2019-03-08] MEDS: TOPIRAMATE 25 MG TABLET. PO SCH ×2 (08:54→21:38)
[2019-03-08] MEDS: PANTOPRAZOLE 40 MG TABLET.DR. PO SCH (08:54)
[2019-03-08] MEDS: ALLOPURINOL 100 MG TABLET. PO SCH (08:54)
[2019-03-08] MEDS: CHOLECALCIFEROL (VITAMIN D3) 1,000 UNIT TABLET PO SCH ×2 (08:54→21:39)
[2019-03-08] MEDS: PROMETHAZINE 6.25 MG/5 ML SYRUP. PO SCH ×4 (08:56→21:39)
[2019-03-08] MEDS ORDERED: NON FORMULARY ITEM (Albuterol Sulfate (Proventil Hfa Inhaler) 2 PUFF) IH SCH (09:00)
[2019-03-08] MEDS ORDERED: NON FORMULARY ITEM (Budesonide/Formoterol Fumarate (Symbicort 160-4.5 Mcg Inhaler) 2 PUFF) IH SCH (09:00)
[2019-03-08] MEDS: cloNIDine HCL 0.3 MG TABLET PO SCH (09:01)
--- NOTE | 2019-03-08 09:48 | NUR ---
SS following for discharge planning. SS reviewed pt chart. Pt is from home with spouse and is currently on room air. SS will continue to follow for discharge planning.
[2019-03-08] MEDS ORDERED: REGADENOSON 0.4 MG/5 ML DISP.SYRIN. IV ONE (10:30)
--- NOTE | 2019-03-08 11:42 | CARD ---
MR#: [id number] Date of Study: 03/08/2019 Ordering Physician: MACK FERRIS, Referring Physician: MACK FERRIS, Tech: Symone Olmstead APPROVED REPORT EXAM: Two-dimensional and M-mode echocardiogram with Doppler and color Doppler. Other Information Quality : AverageHR: 74bpm Technically limited study due to body habitus. INDICATION Chest Pain Congestive Heart Failure RISK FACTORS Hypertension Hyperlipidemia 2D DIMENSIONS RVDd3.0 (2.9-3.5cm)Left Atrium(2D)4.2 (1.6-4.0cm) IVSd1.3 (0.7-1.1cm)Aortic Root(2D)2.9 (2.0-3.7cm) LVDd4.5 (3.9-5.9cm)LVOT Diameter2.0 (1.8-2.4cm) PWd1.8 (0.7-1.1cm)LVDs1.8 (2.5-4.0cm) FS (%) 59.1 %SV82.5 ml LVEF(%)88.9 (>50%) Aortic Valve AoV Peak Finn.232.8cm/sAoV VTI40.6cm AO Peak GR.21.7mmHgLVOT Peak Finn.160.5cm/s LVOT VTI 20.24cmAO Mean GR.12mmHg ADDIE (VMAX)1.51qd0BEO (VTI)1.61cm2 Mitral Valve MV E Qhoxvgsd46.2cm/sMV DECEL CSAB790fc MV A Zmkrmvkn352.3cm/sMV E Mean Gr.3mmHg MV QXV751gaZ/A Ratio0.6 MVA (PHT)1.79cm2 TDI E/Lateral E'13.4E/Medial E'14.1 Pulmonary Valve PV Peak Vilgyuji867.1cm/sPV Peak Grad.10mmHg Tricuspid Valve TR P. Fhqbasiv401su/sRAP XNNGHSKD0ifVp TR Peak Gr.33axPvQIBS30daTv Pulmonary Vein S1 Fmspxgtk70.8cm/sD2 Kwewmlam88.5cm/s PVa fmgqqcbp227ittv LEFT VENTRICLE The left ventricle is normal size. There is severe concentric left ventricular hypertrophy. The left ventricular systolic function is normal and the ejection fraction is within normal range. The Ejectio n Fraction is 55-60%. There is normal LV segmental wall motion. Transmitral Doppler flow pattern is G rade I-abnormal relaxation pattern. RIGHT VENTRICLE The right ventricle is normal size. There is normal right ventricular wall thickness. The right ventr icular systolic function is normal. ATRIA The left atrium size is normal. The right atrium size is normal. The interatrial septum is intact wit h no evidence for an atrial septal defect or patent foramen ovale as noted on 2-D or Doppler imaging. AORTIC VALVE The aortic valve is normal in structure and function. Doppler and Color Flow revealed trace aortic re gurgitation. Calculated aortic valve area is 1.65 cm2 with maximum pressure gradient of 25 mmHg and m bharath pressure gradient of 14 mmHg. MITRAL VALVE The mitral valve is mildly thickened. There is no evidence of mitral valve prolapse. Doppler and [place] r-flow revealed trace mitral regurgitation. TRICUSPID VALVE The tricuspid valve is normal in structure and function. Doppler and Color Flow revealed trace tricus pid regurgitation with an estimated PAP of 30 mmHg. There is no tricuspid valve stenosis. PULMONIC VALVE The pulmonic valve is not well visualized. Doppler and Color Flow revealed trace to mild pulmonic lelo vular regurgitation. There is no pulmonic valvular stenosis. GREAT VESSELS The aortic root is normal in size. The ascending aorta is normal in size. The IVC is normal in size a nd collapses >50% with inspiration. PERICARDIAL EFFUSION There is no evidence of significant pericardial effusion. Critical Notification Critical Value: No <Conclusion> The left ventricular systolic function is normal and the ejection fraction is within normal range. Th e Ejection Fraction is 55-60%. There is normal LV segmental wall motion. There is severe concentric left ventricular hypertrophy. Signed by : Aureliano Vergara, Electronically Approved : 03/08/2019 11:42:03
--- NOTE | 2019-03-08 13:17 | SSS ---
ADMIT DATE: 03/08/2019 CHIEF COMPLAINT: Chest pain. HISTORY OF PRESENT ILLNESS: The patient is a pleasant 53-year-old female who has multiple comorbidities. She presents with chest pain, rated as 7/10. She has some associated nausea. It has been occurring for several weeks, but got worse in the past day or two. She also had some intermittent diarrhea describes as irritating. She tried taking some eris-dnd-ugpvhfc meds that did not work. We decided to go ahead and admit the patient. She is now being examined on the medical floor where we are consulting Cardiology. In fact, the patient already has the first half of the stress test done. If it is negative, we hope to discharge this evening. PAST MEDICAL HISTORY: Asthma, CHF, hypertension, hyperlipidemia, chronic kidney disease, cholecystectomy, hysterectomy, tubal ligation, pericardial window. ALLERGIES: PENICILLIN. FAMILY HISTORY: Coronary artery disease. SOCIAL HISTORY: She does not drink, smoke or take drugs. MEDICATIONS: Reviewed, please refer to the MRAD. REVIEW OF SYSTEMS: GENERAL: No history of weight change, weakness or fevers. SKIN: No bruising, hair changes or rashes. EYES: No blurred, double or loss of vision. NOSE AND THROAT: No history of nosebleeds, hoarseness or sore throat. HEART: She complains of chest pain, although that is resolving. LUNGS: Denies cough, hemoptysis, wheezing or shortness of breath. GASTROINTESTINAL: Denies changes in appetite, nausea, vomiting, diarrhea or constipation. GENITOURINARY: No history of frequency, urgency, hesitancy or nocturia. NEUROLOGIC: Denies history of numbness, tingling, tremor or weakness. PSYCHIATRIC: No history of panic, anxiety or depression. ENDOCRINE: No history of heat or cold intolerance, polyuria or polydipsia. EXTREMITIES: Denies muscle weakness, joint pain, pain on walking or stiffness. PHYSICAL EXAMINATION: VITALS: Within normal limits and are stable. GENERAL: No apparent distress. Alert and oriented. HEENT: Normal cephalic atraumatic, external auditory canals are patent. EYES: Extraocular muscles are intact, pupils are equally round and reactive to light and accommodation. MUSCULOSKELETAL: Well developed, well nourished, good range of motion. ENDOCRINE: No thyromegaly was palpated. LYMPHATICS: No cervical chain or axillary nodes were noted. HEMATOPOIETIC: No bruising. NECK: Supple, no JVD, no thyromegaly was noted. LUNGS: Clear to auscultation in all lung barrett without rhonchi or wheezing. HEART: RRR, S1, S2 present. Peripheral pulses intact, no obvious murmurs were noted. ABDOMEN: Soft, nontender. Positive bowel sounds no organomegaly, normal bowel sounds. EXTREMITIES: Without any cyanosis, clubbing, or edema. Pedal pulses intact, Homans sign is negative. NEUROLOGIC: Normal speech, normal tone. A and O x 3, moves all extremities, no obvious focal deficits. PSYCHIATRIC: Normal affect, normal mood. Stable. SKIN: No ulcerations or rashes, good skin turgor, no jaundice. VASCULAR: Good capillary refill, neurovascular bundle appears to be intact. ASSESSMENT AND PLAN: Chest pain, rule out coronary artery disease. The patient has been admitted. We are checking serial enzymes, serial EKGs. Consult Cardiology. We have a stress test in progress. If that is negative, we hope to discharge this afternoon. DISPOSITION: Home. ACTIVITY: As tolerated. DIET: Low sodium. MEDICATIONS: Please see the MRAD. TOTAL TIME: 32 minutes. SUZEL Carloz ELLIOTT DO DR: MARJORIE/martin JOB#: [id number] / [id number]
--- NOTE | 2019-03-08 14:23 | EKG ---
[facility] [address] [place] [address] Test Date: 2019-03-08 Test Time: 14:18:12 Pat Name: JUAN MANUEL NICHOLAS Department: Room: 205 1 Gender: F Wireless Retail Manager: VÍCTOR : 1965 Requested By: MACK FERRIS Order Number: [id number] Reading MD: Measurements Intervals Counselor Rate: 77 P: 43 LA: 172 QRS: 18 QRSD: 100 T: 142 QT: 418 QTc: 475 Interpretive Statements SINUS RHYTHM BIATRIAL ENLARGEMENT LVH WITH REPOLARIZATION ABNORMALITY PROLONGED QT ABNORMAL ECG RI6.02 Compared to ECG 11/26/2015 17:20:36 Prolonged QT interval now present
[2019-03-08 15:00] VITALS: BP 159/74
[2019-03-08 19:35] VITALS: BP 126/68
[2019-03-08] MEDS ORDERED: AMITRIPTYLINE HCL 25 MG TABLET. PO SCH (21:00)
[2019-03-08] MEDS ORDERED: MONTELUKAST SODIUM 10 MG TABLET. PO SCH (21:00)
[2019-03-08] MEDS ORDERED: ATORVASTATIN CALCIUM 10 MG TABLET. PO SCH (21:00)
[2019-03-08 22:48] VITALS: BP 176/80
[2019-03-09 02:37] VITALS: BP 140/60
[2019-03-09] MEDS: LEVOTHYROXINE 100 MCG TABLET PO SCH (07:18)
[2019-03-09 07:28] VITALS: BP 187/78
[2019-03-09] MEDS: BUDESONIDE 0.5 MG/2 ML NEBU. NEB SCH ×2 (07:47→07:48)
[2019-03-09] MEDS: ALBUTEROL SULFATE 2.5 MG/3 ML NEBU. NEB SCH ×3 (07:48→16:09)
[2019-03-09] MEDS: PANTOPRAZOLE 40 MG TABLET.DR. PO SCH (08:04)
[2019-03-09] MEDS: CARVEDILOL 6.25 MG TABLET. PO SCH ×2 (08:05→17:55)
[2019-03-09] MEDS: ASPIRIN CHEWABLE 81 MG TABLET. PO SCH (08:05)
[2019-03-09] MEDS: CHOLECALCIFEROL (VITAMIN D3) 1,000 UNIT TABLET PO SCH (08:06)
[2019-03-09] MEDS: CALCITRIOL 0.25 MCG CAPSULE. PO SCH (08:06)
[2019-03-09] MEDS: TOPIRAMATE 25 MG TABLET. PO SCH (08:07)
[2019-03-09] MEDS: ALLOPURINOL 100 MG TABLET. PO SCH (08:07)
[2019-03-09] MEDS: CYCLOBENZAPRINE 10 MG TABLET. PO SCH ×2 (08:08→15:04)
[2019-03-09] MEDS ORDERED: LOSARTAN POTASSIUM 25 MG TABLET. PO SCH (09:00)
[2019-03-09] MEDS ORDERED: amLODIPine BESYLATE 10 MG TABLET PO SCH (09:00)
[2019-03-09] MEDS: PROMETHAZINE 6.25 MG/5 ML SYRUP. PO SCH ×3 (09:00→17:00)
[2019-03-09] MEDS ORDERED: ISOSORBIDE MONONITRATE ER 30 MG TAB.ER.24H PO SCH (09:00)
[2019-03-09] MEDS: cloNIDine HCL 0.3 MG TABLET PO SCH (09:15)
--- NOTE | 2019-03-09 10:42 | PDOC ---
MACK FERRIS CATERING TRUCK OPERATOR 03/09/19 1042: CARDIO Progress Notes Date and Time Date of Service 03/09/2019 Time of Evaluation 1530 Subjective Subjective: No Chest Pain, No shortness of breath, No Palpitations Vitals Vitals Vital Signs Date Time Temp Pulse Resp B/P (MAP) Pulse Ox O2 Delivery O2 Flow Rate FiO2 03/09/19 09:16 77 135/54 03/09/19 08:00 Room Air 03/09/19 07:28 97.8 18 97 97.8 Weight Weight [ ] Input and Output Intake and Output Intake and Output 03/09/19 07:00 Intake Total 657 ml Output Total 1350 ml Balance -693 ml Intake Oral 420 ml Tube Feeding 237 ml Output Urine Total 1350 ml Physical Exam HEENT: Neck Supple W Full Motion Chest: Symmetric LUNGS: Clear to Auscultation Heart: S1S2, RRR (SR no significant ectopies) Abdomen: Soft N/T Extremities: No Calf Tenderness Neurology: alert, oriented, follow commands Assessment Assessment 1. NSTEMI: suspect demand mediated type 2, with underlying severe LVH, renal insufficiency and HTN 2. Severe LVH: EF and WM via TTE are normal 3. Accelerated HTN: hypertensive heart disease. BP better 4. CKD5 5. Morbid obesity 6. Suspect chronic diastolic CHF: compensated 7. Asthma exacerbation: currently no wheeze. Better 8. HLP Recommendations 1. Stress test revealed small apical wall ischemia. Currently denies any CP nor SOA. Discussed LHC and potential earlier start of HD with contrast exposure. Discussed risks and benefits and consequences of delay. She understands this and she would like to have any invasive procedure done in where she sees both nephrology and cardiology. I discussed with her to see her early childhood education worker right away post discharge this week or next week to get LHC scheduled as an outpt and she is receptive to this. Will optimize vasodilators. Continue with secondary prevention. I discussed the latter with primary early childhood education worker. Will electronically transmit both TTE and MPI results via radiology. 2. W/U is ongoing for renal transplant consideration 3. Follow up with cardiology and consider amyloid workup and outpt LENIN workup. 4. Optimize BP control. VONDA DOMINGUEZ MD 03/09/19 0719: CARDIO Progress Notes Assessment Assessment Patient seen and examined, Agree with CLIENT SUCCESS SPECIALIST's assessment and plan. MPI showed apical wall ischemia We will refer patient to her primary early childhood education worker for possible LHC based on her wishes Maximize therapy with ASA, BB and Imdur She was advised to call 911 if symptoms recur Thank you for your consultation MACK FERRIS APRN Mar 09, 2019 10:42 VONDA DOMINGUEZ MD Mar 09, 2019 18:58
[2019-03-09 11:19] VITALS: BP 164/60
--- NOTE | 2019-03-09 13:43 | RAD ---
MR#: [id number] Date of Study: 03/08/2019 Ordering Physician: MACK FERRIS, Referring Physician: ILDA MIJARES Tech: RT Irene Mark) (N) APPROVED REPORT Test Type: Pharmacological Stress Nurse/Tech: LETI Griffith Test Indications: chest pain Cardiac History: HTN, chest pain, HLD , See Electronic Medical Record Medications: See Electronic Medical Record Medical History: ESRD, See Electronic Medical Record Resting ECG: SR w/ t-wave inversion noted in various leads Resting Heart Rate: 72 bpm Resting Blood Pressure: 151/64mmHg Pretest Chest Pain: No chest pain Nurse/Tech Notes S1S2, lungs clear/diminished bases, denied chest pain/SOA. Consent: The procedure was explained to the patient in lay terms. Informed consent was witnessed. Tahir eout was entered into SCOUPY. History and Stress Test performed by RT Irene Mark) (N) Pharm. Details Pharmacologic stress testing was performed using mg/kg of at a rate of for minutes. Stress Symptoms Pt c/o some chest discomfort and SOA during the first couple of minutes of the test, symptoms resolve d. POST EXERCISE Reason for Termination: Infusion complete Max HR: 90 bpm Max Blood Pressure: 175/73mmHg Blood Pressure response to exercise: Normal blood pressure response during stress. Heart Rate response to exercise: dakota w/ PVC's during a brief portion Chest Pain: Yes. chest "discomfort" Arrhythmia: Yes. [place] w/ PVC's briefly, then returned to baseline ST Change: Yes. t-wave inversion noted in various leads INTERPRETATION Stress EKG Conclusion: Baseline EKG showed sinus rhythm with inferolateral T-wave inversions. Nondiag nostic changes at peak stress. PVCs without any significant arrhythmias. Imaging Protocol IMAGE PROTOCOL: Stress Tc-99m/rest Tc-99m 2 days Rest: Stress: Viability: Radiopharm.Tc99m Sestamibi Flnw15dTn Img Date 03/08/2019 Inj-Img Oceo67qon. Stress Admin Site: IV - Left AntecubitalAdministrator: Phil Myles, RT (R)(N) STRESS DATA End Diast. Vol.96.0mlAv. Heart Rate72.0bpm End Syst. Vol.55.0mlCO Index BSA0.0L/min Myocardial Vyhq748.0gEject. Pgxxxecq14.0% Stress Rates Pk. Fill Rate1.09EDV/secLVtime Pk. Fill 194.55msec Pk. Empty Rate2.65ESV/secLVtime Pk. Qbobx133.25msec /3 Pk. Fill0.45EDV/sec Stress Scores Regional WT0.00Summed WT18.00 Regional WM2.00Summed WM38.00 LV Perfusion Scintigraphic images showed small reversible defect involving the apical wall consistent with ischemi a. Wall Motion Mild left ventricle systolic dysfunction with ejection fraction calculated at 41%. LV Perf. Quant 17 Seg. SSS8.00 Stress Defect Extent (% LAD)8.10Rest Defect Extent (% LAD)Rev. Defect Extent (% LAD)0.00 Stress Defect Extent (% LCX) 43.80Rest Defect Extent (% LCX)Rev. Defect Extent (% LCX)0.00 Stress Defect Extent (% RCA)6.70Rest Defect Extent (% RCA)Rev. Defect Extent (% RCA)0.00 Stress Defect Extent (% BOBBI)18.30Rest Defect Extent (% BOBBI)Rev. Defect Extent (% BOBBI)0.00 Conclusion 1. Regadenoson cardioisotope stress test showed small amount of apical wall ischemia. 2. Mild left ventricle systolic dysfunction with ejection fraction Greater than 41%. 3. Intermediate risk for cardiac events. Signed by : Jez Sanchez, Electronically Approved : 03/09/2019 13:42:48
--- NOTE | 2019-03-09 13:57 | PDOC ---
[employer] PROGRESS NOTE Chief Complaint Chief Complaint Chest pain, rule out coronary artery disease Asthma Congestive Heart Failure Hypertension Hyperlipidemia Chronic Kidney Disease History of Present Illness History of Present Illness 03/09/19 Pt seen and examined She was laying in bed Pt wants to go home DW pt the possible need for HD while undergoing workup for renal transplant. She sees a director of residential services at and will f/u with them Pt's chart reviewed Vitals/I&O Vitals/I&O: Vital Signs Date Time Temp Pulse Resp B/P (MAP) Pulse Ox O2 Delivery O2 Flow Rate FiO2 03/09/19 12:05 Room Air 03/09/19 12:02 78 164/60 03/09/19 11:19 97.8 98 97.8 03/09/19 07:28 18 I & O 03/08/19 03/08/19 03/09/19 15:00 23:00 07:00 Intake Total 237 ml 420 ml Output Total 600 ml 750 ml Balance -363 ml -750 ml 420 ml Physical Exam General: Alert, Oriented X3, Cooperative, No acute distress Heart: Regular rate (SR), Other (distant heart sounds due to body habitus) Lungs: Clear Abdomen: Soft, No tenderness, Other (obese) Extremities: No cyanosis, No edema, Other Skin: No breakdown, No significant lesion Review of Systems Review of Systems: no c/o N/V no c/o CP Assessment and Plan Assessmemt and Plan Problems Medical Problems: (1) ACS (acute coronary syndrome) Status: Acute Assessment Chest pain, rule out coronary artery disease Asthma Congestive Heart Failure Hypertension Hyperlipidemia Chronic Kidney Disease Plan Cardiology following Pt completed stress test Continue home meds Trend labs DVT prophylaxis Full code D/C disposition pending specialists Comment Review of Relevant I have reviewed the following items tamara (where applicable) has been applied. Medications: Current Medications Medications (Trade) Dose Ordered Sig/Kat Route PRN Reason Start Time Stop Time Status Last Admin Dose Admin Amitriptyline HCl (Elavil) 25 mg QHS PO 03/08/19 21:00 03/08/19 21:39 Amlodipine Besylate (Norvasc) 10 mg DAILY PO 03/09/19 09:00 03/09/19 12:02 Hydralazine HCl (Apresoline) 100 mg TID PO 03/08/19 14:00 1/29/20 08:06 Losartan Potassium (Cozaar) 25 mg DAILY PO 03/09/19 09:00 03/09/19 09:16 Montelukast Sodium (Singulair) 10 mg HS PO 03/08/19 21:00 03/08/19 21:38 Isosorbide Mononitrate (Imdur) 60 mg DAILY PO 03/09/19 09:00 03/09/19 08:09 Atorvastatin Calcium (Lipitor) 10 mg QHS PO 03/08/19 21:00 03/08/19 21:38 AMBER ELLIOTT III DO Mar 09, 2019 13:57
[2019-03-09 15:34] VITALS: BP 157/65
[2019-03-09 17:55] VITALS: BP 154/79
--- NOTE | 2019-03-09 18:18 | NUR ---
Patient sees Dr. Cooper at & his nurse was notified of patient's test results here. nurse is going to talk with her doctor & they will reach out to her.
--- NOTE | 2019-03-09 18:25 | NUR ---
Discharge Note: JUAN MANUEL NICHOLAS [address] Discharge instructions and discharge home medications reviewed with Patient and a copy given. All questions have been answered and understanding verbalized. The following instructions and handouts were given: discharge instructions, dialysis info, dialysis diet info, heart cath info. Discontinued lines and drains: Peripheral IV intact. Patient discharged to Home or Self Care with Family Member via Wheelchair at 1825.
== END 2019-03-09 18:25 | disposition home or self-care (01) | DRG 281 ==
LOC: ER 19:08 → 2 NORTH 21:57
PROVIDERS: ADMIT Internal Medicine; ATTEND Internal Medicine
DX: I21.4 Non-ST elevation (NSTEMI) myocardial infarction (principal); I13.2 Hypertensive heart and chronic kidney disease with heart failure and with stage 5 chronic kidney disease, or end stage renal disease; N18.5 Chronic kidney disease, stage 5; Z68.43 Body mass index [BMI] 50.0-59.9, adult; J45.901 Unspecified asthma with (acute) exacerbation; I50.32 Chronic diastolic (congestive) heart failure; E66.01 Morbid (severe) obesity due to excess calories; E78.00 Pure hypercholesterolemia, unspecified; E78.5 Hyperlipidemia, unspecified; E89.0 Postprocedural hypothyroidism; I48.91 Unspecified atrial fibrillation; K76.0 Fatty (change of) liver, not elsewhere classified; Z82.49 Family history of ischemic heart disease and other diseases of the circulatory system; Z87.11 Personal history of peptic ulcer disease; Z90.710 Acquired absence of both cervix and uterus; G89.29 Other chronic pain; K21.9 Gastro-esophageal reflux disease without esophagitis; M10.9 Gout, unspecified; M19.90 Unspecified osteoarthritis, unspecified site; Z88.0 Allergy status to penicillin; Z91.013 Allergy to seafood
CPT/HCPCS: 36415; 71046; 78452; 80053; 80307; 81001; 83880; 84484; 85025; 85610; 87086; 93005; 93017; 93306; 94640; 94760; 96372; 96374; A9500; J1650; J2785; J2930; J3010; J7613; J7620; J7626; 99285-25; G0378

== ENCOUNTER 2020-03-27 02:55 | Emergency (ER) | payer OTHER, MEDICAID ==
[~2020-03-27] VITALS: Ht 160 cm; Wt 127.3 kg
[~2020-03-27 02:55] MED LIST changes: +BUDE10.2 IH; +CHOL200027 PO; +CLON0.2T PO; +CLON0.3T PO; +CYCL10TA2 PO; -ISOS60TA2 PO; +ISOS60TA55 PO; +LOSA25TA12 PO; +MONT10TA49 PO; +PROM6.257 PO; +TIZA4TAB2 PO
--- NOTE | 2020-03-27 04:00 | RAD ---
AP portable chest radiograph 03/27/2020 Clinical History: Chest pain. An AP erect portable digital radiograph of the chest was obtained. Comparison study is dated 03/07/2019. The cardiac silhouette is mildly enlarged. The thoracic aorta is mildly tortuous. No acute pulmonary infiltrate is seen. No pneumothorax or pleural effusion is seen. The osseous structures are grossly i ntact. Impression: Cardiomegaly. No acute pulmonary infiltrate is seen. Electronically signed by: Pete Dias MD (03/27/2020 3:58 AM) [id number]
[2020-03-27 04:11] LABS: BASO # 0.1 x10^3/uL (0.0-0.2); BASO % 1 % (0-3); EOS # 0.3 x10^3/uL (0.0-0.7); EOS % 3 % (0-3); HEMATOCRIT 35.2 % (36.0-47.0); HEMOGLOBIN 11.8 g/dL (12.0-15.5); LYMPH # 2.4 x10^3/uL (1.0-4.8); LYMPH % 24 % (24-48); MEAN CORPUSCULAR HEMOGLOBIN 29 pg (25-35); MEAN CORPUSCULAR HGB CONC 34 g/dL (31-37); MEAN CORPUSCULAR VOLUME 86 fL (79-100); MONO # 0.9 x10^3/uL (0.0-1.1); MONO % 9 % (0-9); NEUT # 6.2 x10^3/uL (1.8-7.7); NEUT % 62 % (31-73); PLATELET COUNT 182 x10^3/uL (140-400); RED BLOOD COUNT 4.08 x10^6/uL (3.50-5.40); RED CELL DISTRIBUTION WIDTH 14.2 % (11.5-14.5); WHITE BLOOD COUNT 9.9 x10^3/uL (4.0-11.0)
[2020-03-27 04:20] LABS: CALCIUM 8.9 mg/dL (8.5-10.1); CREATININE 9.2 mg/dL (0.6-1.0); GFR 5.4; POTASSIUM 4.5 mmol/L (3.5-5.1)
[2020-03-27 04:26] LABS: ALBUMIN 3.3 g/dL (3.4-5.0); ALBUMIN/GLOBULIN RATIO 0.8 (1.0-1.7); MAGNESIUM 2.6 mg/dL (1.8-2.4); TOTAL BILIRUBIN 0.4 mg/dL (0.2-1.0); TOTAL PROTEIN 7.6 g/dL (6.4-8.2)
[2020-03-27 04:30] VITALS: BP 165/79
[2020-03-27] MEDS ORDERED: ACETAMINOPHEN 500 MG TABLET PO ONE (05:00)
--- NOTE | 2020-03-27 07:34 | EKG ---
[facility] [address] [place] [address] Test Date: 2020-03-27 Test Time: 03:01:55 Pat Name: JUAN MANUEL NICHOLAS Department: Room: Gender: F [employer]: : 1965 Requested By: FUENTES BUSH Order Number: [id number] Reading MD: Measurements Intervals [place] Rate: 71 P: 53 NE: 152 QRS: 18 QRSD: 90 T: 173 QT: 428 QTc: 465 Interpretive Statements SINUS RHYTHM ATRIAL PREMATURE COMPLEX(ES) LEFT ATRIAL ABNORMALITY LVH WITH REPOLARIZATION ABNORMALITY ABNORMAL ECG RI6.02 No previous ECG available for comparison
== END 2020-03-27 07:06 | disposition home or self-care (01) ==
LOC: ER 02:55
DX: R07.89 Other chest pain (principal)
CPT/HCPCS: 36415; 71045; 80053; 83690; 83735; 83880; 84484; 85025; 93005; 99285

== ENCOUNTER 2021-01-15 13:14 | Emergency (ER) | payer OTHER, MEDICAID ==
[~2021-01-15] VITALS: Ht 160 cm; Wt 125.0 kg
[~2021-01-15 13:14] MED LIST changes: +CYCL10TA19 PO; -CYCL10TA2 PO; -DOXY100C2 PO; +DOXY100C3 PO; -LOSA25TA12 PO; +LOSA25TA4 PO; -OMEP40CA45 PO; +OMEP40CA7 PO; +TIZA-75 PO; -TIZA4TAB2 PO
--- NOTE | 2021-01-15 14:04 | PHYS DOC ---
Past Medical History Past Medical History: Asthma, CHF, High Cholesterol, Hypertension, Hypert hyroid, Kidney Infection, Renal Disease Additional Past Medical Histor: CHRONIC KIDNEY DISEASE, Gout Past Surgical History: Cholecystectomy, Hysterectomy, Tubal ligation, Other Additional Past Surgical Histo: PERICARDIAL Window Smoking Status: Never Smoker Alcohol Use: None Drug Use: None General Adult EDM: Chief Complaint: FLU SYMPTOM HPI: HPI: Patient is a 55 year old female who presents with cough, congestion. Patient w as seen at a week ago Thursday for same symptoms but states that she is not getting any better. Patient was checked for Covid and influenza at that time which both were negative. Patient has a history of asthma and has been using her albuterol inhaler and treatments at home with little relief. Patient wears O2 at home at night as needed. Patient reporting productive cough with yellow sputum patient reports feeling achy at home but unknown temp. patient is afebrile. Denies chest pain. Patient's history of hypertension and dialysis. Review of Systems: Review of Systems: ROS At least 10 ROS systems have been reviewed and are negative except as documented in the HPI. General: Negative except as outlined in HPI above. Skin: Negative except as outlined in HPI above. HEENT: Negative except as outlined in HPI above. Neck: Negative except as outlined in HPI above. Respiratory: Negative except as outlined in HPI above.. Cardiovascular: Negative except as outlined in HPI above. Abdomen: Negative except as outlined in HPI above. : Negative except as outlined in HPI above. Back/MSK: Negative except as outlined in HPI above. Neuro: Negative except as outlined in HPI above. Psych: Negative except as outlined in HPI above. Heart Score: C/O Chest Pain: No Risk Factors: Risk Factors: DM, Current or recent (<one month) smoker, HTN, HLP, family history of CAD, obesity. Risk Scores: Score 0 - 3: 2.5% MACE over next 6 weeks - Discharge Home Score 4 - 6: 20.3% MACE over next 6 weeks - Admit for Clinical Observation Score 7 - 10: 72.7% MACE over next 6 weeks - Early Invasive Strategies Allergies: Allergies: Allergies Coded Allergies Type Severity Reaction Last Updated Verified Penicillins Allergy Intermediate 11/29/15 Yes shellfish derived Allergy Intermediate 03/29/20 Yes Physical Exam: PE: Constitutional: Well developed, well nourished, no acute distress, non-toxic appearance. [] HENT: Normocephalic, atraumatic, bilateral external ears normal, oropharynx moist, no oral exudates, nose normal. [] Eyes: PERRLA, EOMI, conjunctiva normal, no discharge. [] Neck: Normal range of motion, no tenderness, supple, no stridor. [] Cardiovascular:Heart rate regular rhythm, no murmur [] Lungs & Thorax: Wheezing heard throughout on auscultation Abdomen: Bowel sounds normal, soft, no tenderness, no masses, no pulsatile masses. [] Skin: Warm, dry, no erythema, no rash. [] Back: No tenderness, no CVA tenderness. [] Extremities: No tenderness, no cyanosis, no clubbing, ROM intact, no edema. [] Neurologic: Alert and oriented X 3, normal motor function, normal sensory function, no focal deficits noted. [] Psychologic: Affect normal, judgement normal, mood normal. [] Current Patient Data: Vital Signs: Vital Signs Date Time Temp Pulse Resp B/P (MAP) Pulse Ox O2 Delivery O2 Flow Rate FiO2 01/15/21 13:48 99.4 91 20 195/99 (131) 98 Room Air 99.4 EKG: EKG: [] Radiology/Procedures: Radiology/Procedures: []XR CHEST 2V History: Reason: cough / Spl. Instructions: / History: Comparison: March 27, 2020 Findings: Mild ill-defined mid and bibasilar opacities. No pleural effusion. No pneumothorax. Enlarged cardiac size, unchanged. Impression: 1. Mild ill-defined mid and bibasilar opacities, may represent atelectasis or d eveloping infiltrates. Recommend follow-up. 2. Enlarged cardiac size, unchanged. Electronically signed by: Diony Kessler DO (01/15/2021 2:42 PM) [id number] Course & Med Decision Making: Course & Med Decision Making Pertinent Labs and Imaging studies reviewed. (See chart for details) [] 55-year-old female presents with cough, wheezing, congestion. Patient was evaluated last Thursday at for same symptoms. Patient is returned because symptoms have not improved. Wheezing heard throughout on auscultation. Patient does report yellow, sputum. Work-up in ER consisted of chest x-ray, DuoNeb, prednisone, Motrin. Patient was tested for Covid and influenza which both were negative. Patient is hemodynamically stable. 100%, room air. Chest x-ray is concerning for pneumonia. Sending patient home on antibiotics, prednisone, albuterol inhaler. All other labs are unremarkable. Discussed all results with patient. Advised patient she needs to call her PCP make a follow-up appointment in the next 2 to 3 days. Patient's blood pressure is elevated, 208/91. Patient states that she has a history of hypertension and did not take her meds today for blood pressure. Patient denies chest pain, headache, dizziness. Patient states that she will take her hypertension medication when she gets home.Discussed return precautions in length.Patient reports that she understands discharge instructions. Dragon Disclaimer: [employer] Disclaimer: This electronic medical record was generated, in whole or in part, using a voice recognition dictation system. Departure Departure Impression: Primary Impression: Pneumonia Qualified Codes: J18.9 - Pneumonia, unspecified organism Disposition: HOME / SELF CARE / HOMELESS Condition: STABLE Referrals: SHENG CUMMINGS MD (PCP) Patient Instructions: Cough, Adult, [id number] Additional Instructions: You were seen in the emergency room for cough, congestion. Chest x-ray was suspicious for pneumonia. I am sending you home with an antibiotic, prednisone, albuterol inhaler. Please take Motrin and Tylenol for fever. Follow-up with your PCP in the next 2 to 3 days. Return to the emergency room if you have worsening symptoms or concerns such as shortness of breath, chest pain. EMERGENCY DEPARTMENT GENERAL DISCHARGE INSTRUCTIONS Thank you for coming to [facility] Emergency Department (ED) today and trusting us with you care. We trust that you had a positive experience in our Emergency Department. If you wish to speak to the department management, you may call the Director at [phone]. YOUR FOLLOW UP INSTRUCTIONS ARE FOLLOWS: 1. Do you have a private Doctor? If you do not have a private doctor, please ask for a resource list of physicians or clinics that may be able to assist you with follow up care. 2. The Emergency Physicain has interpreted your x-rays. The X-Ray specialist will also review them. If there is a change in the findings, you will be notified in 48 hours when at all possible. 3. A lab test or culture has been done, your results will be reviewed and you will be notified if you need a change in treatment. ADDITIONAL INSTRUCTIONS AND INFORMATION: 1. Your care today has been supervised by a physician who is specially trained in emergency care. Many problems require more than one evaluation for a complete diagnosis and treatment. We recommend that you schedule your follow up appointment as recommended to ensure complete treatment of you illness or injury. If you are unable to obtain follow up care and continue to have a problem, or if your condition worsens, we recommend that you return to the ED. 2. We are not able to safely determine your condition over the phone nor are we able to give sound medical advice over the phone. For these safety reasons, if you call for medical advice we will ask you to come to the ED for further evaluation. 3. If you have any questions regarding these discharge instructions please call the ED at [phone]. SAFETY INFORMATION: In the interest of safety, wellness, and injury prevention; we encourage you to wear your sealbelt, if you smoke; quite smoking, and we encourage family to use a protective helmet for bicycling and other sporting events that present an increased risk for head injury. IF YOUR SYMPTOMS WORSEN OR NEW SYMPTOMS DEVELOP, OR YOU HAVE CONCERNS ABOUT YOUR CONDITION; OR IF YOUR CONDITION WORSENS WHILE YOU ARE WAITING FOR YOUR FOLLOW UP APPOINTMENT; EITHER CONTACT YOUR PRIMARY CARE DOCTOR, THE PHYSICIAN WHOSE NAME AND NUMBER YOU WERE GIVEN, OR RETURN TO THE ED IMMEDIATELY. Scripts Prednisone (PREDNISONE) 20 Mg Tablet 1 TAB PO UD for 5 Days, #10 TAB 2 tabs PO daily for 5 daily Prov: DANII GOSS APRN 01/15/21 Albuterol Sulfate (Proair Hfa) 8.5 Gm Hfa.aer.ad 2 PUFF IH PRN Q4-6HRS PRN for wheezing for 21 Days, #1 INHALER 0 Refills Prov: DANII GOSS APRN 01/15/21 Levofloxacin (LEVOFLOXACIN) 750 Mg Tablet 1 TAB PO DAILY for 5 Days, #5 TAB Prov: DANII GOSS APRN 01/15/21 DANII GOSS APRN Jan 15, 2021 14:04
[2021-01-15] MEDS ORDERED: IBUPROFEN 200 MG TABLET. PO ONE (14:15)
[2021-01-15] MEDS ORDERED: predniSONE 20 MG TABLET PO ONE (14:15)
[2021-01-15] MEDS ORDERED: IPRATRPIUM/ALBUTEROL 0.5/2.5MG 3 ML NEBU. NEB ONE (14:15)
[2021-01-15] MEDS ORDERED: predniSONE 20 MG TABLET ONE (14:33)
--- NOTE | 2021-01-15 14:45 | RAD ---
XR CHEST 2V History: Reason: cough / Spl. Instructions: / History: Comparison: March 27, 2020 Findings: Mild ill-defined mid and bibasilar opacities. No pleural effusion. No pneumothorax. Enlarged cardiac size, unchanged. Impression: 1. Mild ill-defined mid and bibasilar opacities, may represent atelectasis or developing infiltrates . Recommend follow-up. 2. Enlarged cardiac size, unchanged. Electronically signed by: Diony Kessler DO (01/15/2021 2:42 PM) [id number]
[2021-01-15] MEDS ORDERED: PRED20TA PO (15:27)
[2021-01-15] MEDS ORDERED: ALBU2.5V8 IH (15:27)
[2021-01-15] MEDS ORDERED: LEVO750T5 PO (15:27)
[2021-01-15 15:45] VITALS: BP 208/91
== END 2021-01-15 16:01 | disposition home or self-care (01) ==
LOC: ER 13:14
DX: J18.9 Pneumonia, unspecified organism (principal); I13.0 Hypertensive heart and chronic kidney disease with heart failure and stage 1 through stage 4 chronic kidney disease, or unspecified chronic kidney disease; N18.9 Chronic kidney disease, unspecified; I50.9 Heart failure, unspecified; E78.00 Pure hypercholesterolemia, unspecified; M10.9 Gout, unspecified; Z88.0 Allergy status to penicillin; Z91.013 Allergy to seafood
CPT/HCPCS: 71046; 94640; 99283; J7512